=== PATIENT | female | born 1940 | race Caucasian/White ===

== ENCOUNTER 2016-04-03 13:00 | Inpatient (IN) ==
[2016-04-29 11:58] LABS: MANUAL DIFF NEEDED? NO; URINE SOURCE CLEAN CATCH
[2016-04-29 12:05] LABS: BASO% 0.5 % (0.0-0.8); EOS# 0.05 X1000 (0.0-0.7); EOS% 0.7 % (0.0-10.0); HEMATOCRIT 43.5 % (37.0-47.0); HEMOGLOBIN 14.6 g/dL (12.0-16.0); IMM GRAN# 0.15 X1000 (0.0-0.04); LYMPH# 1.86 X1000 (1.2-3.4); LYMPH% 24.4 % (20.5-51.1); MCHC 33.6 g/dL (33-37); MCV 95.4 FL (81-99); MONO# 0.74 X1000 (0.11-0.59); MONO% 9.7 % (1.7-9.3); MPV 8.5 FL (7.4-10.4); NEUT% 62.7 % (42.2-75.2); PLT 297 X1000 (130-400); RBC 4.56 XMIL (4.2-5.4)
[2016-04-29 12:07] LABS: BILIRUBIN URINE NEGATIVE (NEGATIVE); BLOOD URINE NEGATIVE (NEGATIVE); COLOR YELLOW; GLUCOSE URINE NEGATIVE (NEGATIVE); LEUKOCYTES URINE TRACE (NEGATIVE); NITRITE URINE NEGATIVE (NEGATIVE); PROTEIN URINE 50 mg/dL (NEGATIVE); SP GRAVITY URINE 1.023; TURBIDITY URINE TURBID (CLEAR); UROBILINOGEN URINE NORMAL (NORMAL)
[2016-04-29 12:08] LABS: URINE MICRO REVIEW NEEDED? YES
[2016-04-29 12:09] LABS: UR EPITHELIAL CELLS >10 /HPF (<10); URINE BACTERIA 1+ /HPF; URINE RBC <10 /HPF (<10); URINE WBC <10 /HPF (<10)
[2016-04-29 12:26] LABS: INR 0.99; PROTIME 10.5 Seconds (9.2-11.7); PTT 26.2 Seconds (22.0-36.0)
[2016-04-29 12:41] LABS: CALCIUM 9.5 mg/dL (8.8-10.2); POTASSIUM 4.8 mmol/L (3.5-5.1)
--- NOTE | 2016-04-29 14:31 | EKG Report ---
Test Performed on : 04/29/2016 11:28:25 AM Test Reason : PAT Blood Pressure : / mmHG Vent. Rate : 076 BPM Atrial Rate : 076 BPM P-R Int : 138 ms QRS Dur : 078 ms QT Int : 412 ms P-R-T Axes : 068 073 087 degrees QTc Int : 463 ms Normal sinus rhythm. Normal ECG When compared with ECG of 29-APR-2016 11:26, (Unconfirmed) No significant change was found Confirmed by Barry Olson MD ([id number]) on 04/30/2016 9:44:48 PM
[2016-05-01] MEDS ORDERED: LR 1,000 ML ONE (12:34)
[2016-05-01] MEDS ORDERED: KEFZOL 1 GM/D5W 50 ML ONE (12:34)
--- NOTE | 2016-05-01 13:45 | HISTORY AND PHYSICAL ---
CHIEF COMPLAINT: Right femur fracture. HISTORY OF PRESENT ILLNESS: Ms Keita is a 75-year-old white female with a history of right hip pain and femur pain for about 2 months now. Radiographic image was obtained of her right hip which revealed a stress fracture in the femur. She is being admitted today for a right femur trochanteric fixation nail. PAST MEDICAL HISTORY: Pulmonary edema and CHF, hyperlipidemia, hypothyroidism, osteoarthritis. SURGICAL HISTORY: Tonsils and adenoids, D and C, and Bartholin gland surgery. FAMILY HISTORY: Noncontributory. SOCIAL HISTORY: She is . Denies using tobacco, denies using alcohol. HOME MEDICATIONS: 1. Zocor 20 mg p.o. at bedtime. 2. Celebrex 200 mg p.o. p.r.n. 3. Levothyroxine 75 mcg p.o. as directed. 4. Lasix 20 mg p.o. daily. 5. Cyanocobalamin 2500 mcg sublingual daily. 6. Calcium citrate 200 mg p.o. b.i.d. 7. Metoprolol succinate 25 mg p.o. daily. ALLERGIES: Levaquin. PRIMARY CARE PROVIDER: Dr. Doug Menard. REVIEW OF SYSTEMS: HEENT: Patient reports having glasses. Denies any other HEENT problems. Cardiac: Patient reports having CHF and having some fluid on her heart recently. She denies any shortness of breath or chest pain currently. Pulmonary: The patient reports having bilateral pneumoniae recently as well, but currently denies any symptoms of that. Denies any coughing or wheezing or hemoptysis. Gastrointestinal: The patient denies any chronic GI problems. Denies any nausea, vomiting, diarrhea. Genitourinary: Patient denies any genitourinary problems. Neurological: Patient denies any numbness, tingling or any neurological deficits. Musculoskeletal: Patient complains of right hip and leg pain. PHYSICAL EXAMINATION: GENERAL: Patient is awake, sitting up in bed. She is articulate and able to answer questions appropriately. HEENT: Head is normocephalic, atraumatic. Pupils equal, round, reactive to light. Nares patent. Throat without exudate. CARDIAC: S1, S2 auscultated. No murmur, rub or gallop noted. LUNGS: Clear to auscultation bilaterally in all lung londono. GASTROINTESTINAL: Abdomen is soft, nontender, nondistended. Bowel sounds present in all quadrants. GENITOURINARY: Not examined. NEUROLOGICAL: Patient has good sensation to dull touch. Cranial nerves 2-12 are grossly intact. MUSCULOSKELETAL: On physical examination, the patient has right hip pain with weightbearing activities and ambulation. IMPRESSION: Right femur stress fracture. PLAN: Right side trochanteric fixation nail. The risks, benefits, and alternatives of the surgery were discussed with the patient, including risk of anesthesia, infection, bleeding, damage to blood vessels, nerves, tendons, and other imponderables discussed. The patient agrees to proceed with surgery at this time. Dictated by JERRY Cespedes for Dontae Wu MD
[2016-05-01] MEDS ORDERED: NEOSPORIN G.U. IRRIGANT ONE (14:21)
[2016-05-01 14:36] LABS: URINE MICRO REVIEW NEEDED? NO; URINE SOURCE CATH
[2016-05-01 14:53] LABS: UR EPITHELIAL CELLS <10 /HPF (<10); URINE BACTERIA NEGATIVE /HPF; URINE RBC <10 /HPF (<10); URINE WBC <10 /HPF (<10)
[2016-05-01 14:57] LABS: BILIRUBIN URINE NEGATIVE (NEGATIVE); BLOOD URINE NEGATIVE (NEGATIVE); COLOR YELLOW; GLUCOSE URINE NEGATIVE (NEGATIVE); LEUKOCYTES URINE NEGATIVE (NEGATIVE); NITRITE URINE NEGATIVE (NEGATIVE); PH URINE 6.5; PROTEIN URINE 50 mg/dL (NEGATIVE); SP GRAVITY URINE 1.027; TURBIDITY URINE CLEAR (CLEAR); UROBILINOGEN URINE NORMAL (NORMAL)
[2016-05-01] MEDS ORDERED: NS 1,000 ML ONE (15:25)
[2016-05-01] MEDS ORDERED: MORPHINE ONE (15:26)
[2016-05-01] MEDS ORDERED: FENTANYL ONE (15:27)
[2016-05-01] MEDS ORDERED: DIPRIVAN 1% ONE (15:27)
[2016-05-01] MEDS: MORPHINE ONE ×2 (15:39→15:49)
[2016-05-01] MEDS ORDERED: HALDOL IV PRN (15:44)
[2016-05-01] MEDS ORDERED: MILK OF MAGNESIA PO PRN (15:45)
[2016-05-01] MEDS ORDERED: MORPHINE IV PRN (15:45)
[2016-05-01] MEDS ORDERED: ZOFRAN IV PRN (15:45)
[2016-05-01] MEDS ORDERED: ZOFRAN ONE (16:02)
[2016-05-01] MEDS ORDERED: EPHEDRINE ONE (16:02)
[2016-05-01] MEDS ORDERED: XYLOCAINE-MPF 2% ONE (16:03)
[2016-05-01] MEDS ORDERED: OFIRMEV 1000 MG/ISOTONIC SOLN 100 ML ONE (16:03)
[2016-05-01] MEDS: DILAUDID ONE ×3 (16:06→16:18)
--- NOTE | 2016-05-01 18:00 | OPERATIVE NOTE ---
PROCEDURE DATE: 05/01/2016 PREOPERATIVE DIAGNOSIS: Stress fracture, right femur. POSTOPERATIVE DIAGNOSIS: Stress fracture, right femur. PROCEDURE: Intramedullary nailing of the right femur with a Synthes TFN 11 x 380 mm nail. SURGEON: Dontae Wu MD 1[employer] SALES AND LEASING CONSULTANT: JERRY Toussaint ANESTHESIA: General. IV FLUIDS: 1000 mL lactated Ringer's. BLOOD LOSS: 75 mL. COMPLICATIONS: None. INDICATION: The patient is a pleasant 75-year-old female, with a chronic history of pain and discomfort in her right femur. X-rays were obtained and revealed findings consistent with a stress fracture on the proximal 1/3 of the femur. Recommendation to proceed with prophylactic intramedullary nailing was offered. Risks and benefits of surgery were explained, including risk of anesthesia, , bleeding, infection, failure to relieve pain, postop stiffness, nerve injury, blood clots and other imponderables. All questions were answered. The patient and family wish to proceed with surgery. DETAILS OF OPERATION: The patient was taken to the operating room and placed supine on the operating table. Once adequate anesthesia was obtained, the patient was placed on the fracture table. Right lower extremity was subsequently prepped and draped in usual sterile fashion. Approximately 3 fingerbreadths proximal to the greater trochanter a lateral incision was made. Careful blunt dissection performed to the gluteus olinda. A guide pin was then placed on the tip of the greater trochanter and into the intramedullary canal. After confirming good positioning with C-arm visualization in both AP and lateral projections, a starting reamer was passed. Ball- tipped guide pin was then placed in the intramedullary canal. The length of the nail was determined to be 380 mm. Sequential reaming was then conducted up to 12-1/2 mm in preparation for 11 mm diameter nail. An 11 x 380 mm Synthes TFN nail was then placed over the ball-tipped guide pin. Had good position confirmed with C-arm visualization. The ball-tipped guide pin was then removed. Using the outrigger guide, incision was made along the lateral proximal femur and the guide was then placed. The guide pin was then passed across the femoral neck and into the femoral head and had good position confirmed with C-arm visualization. The lateral cortex was reamed. This was followed by a cannulated drill. A 90 mm helical blade was then impacted in position and had good purchase. Proximal set screw was tightened. Using C-arm visualization and using perfect [place] technique, distal locking screw was then placed and had good purchase. Final C-arm visualization revealed good alignment in the static locked position. Final C-arm visualization revealed good position of the hardware. Wounds were copiously irrigated. Number 1 Vicryl was used to repair the deep fascia in the proximal wound, followed by 2-0 Vicryl in the 2 proximal wounds and skin adis in all the wounds. Adaptic, sterile 4 x 4, ABD pad, and tape applied to the right lower extremity. The patient tolerated procedure well with no complications. She was transferred to the recovery room in stable condition.
[2016-05-01] MEDS: NS 1,000 ML IV SCH (18:35)
[2016-05-01] MEDS: CITRACAL + D PO SCH ×2 (19:58→20:01)
[2016-05-01] MEDS: COLACE PO SCH (19:58)
[2016-05-01] MEDS: PERIDEX MT SCH ×2 (19:58→20:01)
[2016-05-01] MEDS: ZOCOR PO SCH (19:59)
[2016-05-02] MEDS: KEFZOL 1 GM/D5W 50 ML IV SCH ×3 (00:01→15:02)
[2016-05-02] MEDS: TYLENOL PO SCH ×4 (00:02→21:42)
[2016-05-02] MEDS: NS 1,000 ML IV SCH (05:19)
[2016-05-02] MEDS: SYNTHROID PO SCH ×2 (05:23→06:33)
--- NOTE | 2016-05-02 06:52 | PROGRESS NOTE ---
DATE: 05/02/2016 SUBJECTIVE: The patient is a 75-year-old female who is 1 day status post intramedullary nailing for a stress fracture of the right femur. She is currently resting comfortably. She has no some significant problems. She does have some mild discomfort this morning, however, is resting well. OBJECTIVE: On physical exam of the right lower extremity, the dressing is intact. Her calf is soft. She has active dorsiflexion and plantar flexion. DIAGNOSTIC DATA: Her hemoglobin and hematocrit are pending. IMPRESSION: Postoperative day number 1, status post intramedullary nailing of the right femur. PLAN: At this point, we will hep-lock her IV, and we will mobilize physical therapy with weightbearing as tolerated. We will consult social media content specialist for discharge planning.
[2016-05-02 06:54] LABS: HEMATOCRIT 31.3 % (37.0-47.0); HEMOGLOBIN 10.2 g/dL (12.0-16.0)
[2016-05-02 07:18] LABS: AGAP 11; BUN 9 mg/dL (8-22); CALCIUM 7.6 mg/dL (8.8-10.2); CHLORIDE 102 mmol/L (98-107); COSMO 268; POTASSIUM 4.3 mmol/L (3.5-5.1); SODIUM 135 mmol/L (136-145); TCO2 22 mmol/L (25-35)
[2016-05-02] MEDS ORDERED: XARELTO PO ONE (09:40)
[2016-05-02] MEDS: PERIDEX MT SCH ×2 (09:49→21:43)
[2016-05-02] MEDS: TOPROL XL PO SCH (09:50)
[2016-05-02] MEDS: CITRACAL + D PO SCH ×2 (09:50→21:42)
[2016-05-02] MEDS: LASIX PO SCH (09:50)
[2016-05-02] MEDS: FERROUS SULFATE PO SCH (09:50)
[2016-05-02] MEDS: OXY IR PO PRN (11:02)
[2016-05-02] MEDS: ZOCOR PO SCH (21:42)
[2016-05-02] MEDS: COLACE PO SCH (21:42)
[2016-05-03] MEDS ORDERED: XARELTO PO SCH (06:00)
[2016-05-03] MEDS: TYLENOL PO SCH ×2 (06:05→14:50)
[2016-05-03] MEDS: SYNTHROID PO SCH (06:05)
[2016-05-03 06:29] LABS: HEMOGLOBIN 10.7 g/dL (12.0-16.0)
--- NOTE | 2016-05-03 06:32 | PROGRESS NOTE ---
DATE: 05/03/2016 SUBJECTIVE: The patient is a pleasant, 75-year-old female who is 2 days status post intramedullary nailing for stress fracture right femur. The patient was slow to mobilize in physical therapy yesterday and had some increased discomfort. She feels better this morning. PHYSICAL EXAMINATION: Vital signs: Are stable. Right lower extremity: Wounds look good. There are no signs or symptoms of infection. Her calf is soft. She is neurovascularly intact distally, and has active dorsiflexion plantar flexion. IMPRESSION: Postop day number one status post intramedullary nailing of the right femur. PLAN: At this point the patient will continue to mobilize in physical therapy, weight bear as tolerated right lower extremity. Sample Display Preparer has been consulted for home health physical therapy. We will see how she progresses with therapy today.
[2016-05-03] MEDS: LASIX PO SCH (08:29)
[2016-05-03] MEDS: CITRACAL + D PO SCH (08:29)
[2016-05-03] MEDS: TOPROL XL PO SCH (08:30)
[2016-05-03] MEDS: PERIDEX MT SCH (08:30)
[2016-05-03] MEDS: FERROUS SULFATE PO SCH (08:31)
[2016-05-03] MEDS: OXY IR PO PRN (11:29)
[2016-05-03 14:41] VITALS: BP 121/57
== END 2016-05-03 16:36 | disposition home health service (06) | DRG 481 ==
LOC: SURHOLD 05-01 04:29 → 4N 05-01 15:28
PROVIDERS: ADMIT Orthopaedic Surgery Adult Reconstructive Orthopaedic Surgery; ATTEND Orthopaedic Surgery Adult Reconstructive Orthopaedic Surgery
PROC: 0QH636Z Insertion of Intramedullary Internal Fixation Device into Right Upper Femur, Percutaneous Approach (ICD-10-PCS; principal; 2016-05-01 13:44)
DX: M84.351A Stress fracture, right femur, initial encounter for fracture (principal); I50.32 Chronic diastolic (congestive) heart failure; E03.9 Hypothyroidism, unspecified; E78.5 Hyperlipidemia, unspecified; M19.90 Unspecified osteoarthritis, unspecified site; Z79.899 Other long term (current) drug therapy
CPT/HCPCS: 76000; 80048; 81001; 85014; 85018; 85025; 85610; 85730; 86850; 86900; 86901; 93005; 93010; 93017; 94761; 94799; J0131; J0690; J1170; J2270; J2405; J3010; J7030; J7120; 97110-GP; 97116-GP; 97530-GP